=== PATIENT | male | born 1945 | race Caucasian/White ===

== ENCOUNTER 2019-02-25 13:49 | Outpatient (CLI) | payer MEDICARE ==
[2019-02-25 14:38] LABS: BASOPHILS % (AUTO) 0.2 %; EOSINOPHILS # (AUTO) 0.1 10^3/uL (0.0-0.7); EOSINOPHILS % (AUTO) 0.7 %; HGB - HEMOGLOBIN 13.6 g/dL (14.0-18.0); LYMPHOCYTES # (AUTO) 1.9 10^3/uL (1.5-3.5); LYMPHOCYTES % (AUTO) 10.7 %; MEAN CORPUSCULAR HEMOGLOBIN 30.4 pg (27.0-31.0); MEAN CORPUSCULAR HGB CONC 34.1 g/dL (32.0-36.0); MEAN PLATELET VOLUME 9.1 fL (7.4-11.4); MONOCYTES # (AUTO) 1.5 10^3/uL (0.0-1.0); MONOCYTES % (AUTO) 8.3 %; NEUTROPHILS # (AUTO) 14.4 10^3/uL (1.5-6.6); NEUTROPHILS % (AUTO) 80.1 %; PLT - PLATELET COUNT 219 10^3/uL (130-450); RED BLOOD COUNT 4.49 10^6/uL (4.70-6.10); RED CELL DISTRIBUTION WIDTH 13.5 % (12.0-15.0)
--- NOTE | 2019-02-25 15:15 | XRAY Report ---
Reason: PNEUMONIA, UNSPECIFIED ORGANISM Procedure Date: 02/25/2019 Accession Number: [id number] / [id number] Procedure: XR - Chest 2 View X-Ray CPT Code: 87476 FULL RESULT: EXAM: CHEST RADIOGRAPHY EXAM DATE: 02/25/2019 03:01 PM. CLINICAL HISTORY: PNEUMONIA, UNSPECIFIED ORGANISM. COMPARISON: None available. TECHNIQUE: 2 views. FINDINGS: Heart size is normal. Mild patchy opacities in the left lung base, likely the lingula. No pleural effusions or pneumothoraces visualized. IMPRESSION: Mild patchy opacities in the lingula, which may represent atelectasis or developing pneumonia. RADIA
== END 2019-02-25 13:50 | disposition home or self-care (01) ==
LOC: LAB 13:49
PROVIDERS: ATTEND Specialist
DX: J18.9 Pneumonia, unspecified organism (principal)
CPT/HCPCS: 71046; 85025

== ENCOUNTER 2019-03-20 12:12 | Outpatient (CLI) | payer MEDICARE ==
--- NOTE | 2019-03-20 22:04 | MRI Report ---
Reason: OTHER AMNESIA Procedure Date: 03/20/2019 Accession Number: [id number] / [id number] Procedure: MRI - Brain W/O CPT Code: FULL RESULT: EXAM: MRI BRAIN WITHOUT CONTRAST EXAM DATE: 03/20/2019 01:34 PM. CLINICAL HISTORY: 73-year-old male, amnesia COMPARISON: None. TECHNIQUE: Multiplanar, multisequence T1-weighted and fluid-sensitive MR sequences of the brain were performed. Sequences optimized for routine evaluation. Other: None. IV Contrast: None. FINDINGS: Brain Volume: Normal for age. Parenchyma/Dura: No mass, acute infarct or hemorrhage. Few scattered T2/FLAIR hyperintense periventricular and deep white matter lesions within cerebral hemispheres bilaterally. No parenchymal foci of susceptibility artifact. Ventricles/Cisterns: No hydrocephalus. No abnormal extra-axial fluid collection or hemorrhage. Orbits: Status post bilateral lens replacement surgery. Sella Turcica: The pituitary gland, cavernous sinuses, suprasellar cistern and optic chiasm are unremarkable. IAC: Symmetric and unremarkable. Vasculature: Normal signal flow void is seen in the major arterial structures at the skull base. Sinuses: No acute appearing sinus disease. Bones: No focal pathologic appearing marrow signal changes. Other: None. IMPRESSION: 1. No MRI evidence of acute intracranial abnormality. Specifically, no evidence of acute or subacute infarct, acute intracranial hemorrhage, mass, midline shift, or hydrocephalus. 2. Few scattered T2/FLAIR hyperintense periventricular and deep white matter lesions within cerebral hemispheres bilaterally. These lesions are nonspecific, and can be seen with the entire gamut of white matter conditions, including migraine headaches and as sequela of chronic microangiopathy. RADIA
== END 2019-03-20 12:13 | disposition home or self-care (01) ==
LOC: DI 12:12
PROVIDERS: ATTEND Family Medicine
DX: R41.3 Other amnesia (principal)
CPT/HCPCS: 70551

== ENCOUNTER 2020-09-22 09:37 | Outpatient (CLI) | payer MEDICARE | END 2020-09-22 09:38 | disposition critical access hospital (66) | LOC: EMS 09:37 | PROVIDERS: ATTEND Surgery | DX: K62.5 Hemorrhage of anus and rectum (principal); R42 Dizziness and giddiness | CPT/HCPCS: A0425; A0427 ==

== ENCOUNTER 2020-09-22 10:04 | Emergency (ER) | payer MEDICARE ==
[2020-09-22] MEDS ORDERED: SODIUM CHLORIDE 0.9% 1,000 ML IV STA (10:21)
--- NOTE | 2020-09-22 10:38 | ED Physician Documentation ---
History of Present Illness - Stated complaint Stated Complaint: GI BLEED - Chief complaint Chief Complaint: Abd Pain - History obtained from History obtained from: Patient - Additonal information Additional information: GI bleeding that started about 24 hours ago. He states that he had gone out for a walk when he suddenly felt as though he was going to have diarrhea. He states he came back home and when he use the toilet, he noticed that the bowl was full of blood. He states the blood was bright red, and that this happened several times throughout the day, as well as about 5 times last night. He states that each time, the bowl appeared to be full of blood, though the blood progressed from bright red to a very dark red. The patient states that he has not had any abdominal pain, nor has he had anal pain with defecating. He has not had any leakage of blood onto his underwear in between bowel movements. He is not bleeding from anywhere else. The patient does not take any anticoagulate chung therapy, even aspirin. He has a history of diverticulosis and diverticulitis previously, and this is the only other time he has had rectal bleeding. The patient states that his last colonoscopy was 3 years ago, and that he had some polyps removed and they noted the diverticuli but otherwise no findings. Patient states that he was otherwise feeling well until this morning, he walked back to the bedroom after using the bathroom and suddenly felt very lightheaded. Patient's states that she came in and found him to be diaphoretic and very pale and made him lay down. then called EMS. Patient states that he was able to walk out to the rig and felt "pretty good" at that point. Right now he is feeling fine. No other complaints at this time. Review of Systems Ten Systems: 10 systems reviewed and negative Constitutional: reports: Reviewed and negative Eyes: reports: Reviewed and negative Ears: reports: Reviewed and negative Nose: reports: Reviewed and negative Throat: reports: Reviewed and negative Cardiac: reports: Reviewed and negative Respiratory: reports: Reviewed and negative GI: reports: Diarrhea, Bloody / black stool. denies: Abdominal Pain, Nausea, Vomiting : reports: Reviewed and negative Skin: reports: Reviewed and negative Musculoskeletal: reports: Reviewed and negative Neurologic: reports: Reviewed and negative Psychiatric: reports: Reviewed and negative Endocrine: reports: Reviewed and negative Immunocompromised: reports: Reviewed and negative PD PAST MEDICAL HISTORY - Present Medications Home Medications: Ambulatory Orders Medication Instructions Recorded Confirmed No Known Home Medications 09/22/20 09/22/20 - Allergies Allergies/Adverse Reactions: Allergies Allergy/AdvReac Type Severity Reaction Status Date / Time No Known Drug Allergies Allergy Verified 09/22/20 10:23 PD ED PE NORMAL - Vitals Vital signs reviewed: Yes - General General: Alert and oriented X 3, No acute distress, Well developed/nourished (Patient is extremely well-appearing) - HEENT HEENT: Atraumatic, PERRL, EOMI, Moist mucous membranes - Neck Neck: Supple, no meningeal sign - Cardiac Cardiac: RRR, No murmur, Strong equal pulses - Respiratory Respiratory: No respiratory distress, Clear bilaterally - Abdomen Abdomen: Soft, Non tender, Non distended - Rectal Rectal: Other (Single, noninflamed, nonthrombosed hemorrhoid externally. No anal pain with digital rectal exam. No mass. Mild amount of grossly bloody, maroon-colored mucus in the rectal vault.) - Derm Derm: Normal color, Warm and dry, No rash - Extremities Extremities: No deformity, No edema, No calf tenderness / cord - Neuro Neuro: Alert and oriented X 3, clerk carrier 2-12 intact, Normal speech, Other (Otherwise grossly normal) - Psych Psych: Normal mood, Normal affect Results - Vitals Vitals: Vital Signs - 24 hr 09/22/20 09/22/20 09/22/20 10:17 13:01 13:47 Temperature 36.2 C L 36.7 C Heart Rate 68 73 72 Respiratory 18 16 18 Rate Blood Pressure 122/106 H 137/66 H 141/88 H O2 Saturation 100 95 98 Oxygen O2 Source Room air - Labs Labs: Laboratory Tests 09/22/20 09/22/20 09/22/20 10:40 10:40 10:40 WBC 13.1 H RBC 4.09 L Hgb 12.6 L Hct 38.0 L MCV 92.9 MCH 30.8 MCHC 33.2 RDW 13.5 Plt Count 225 MPV 10.8 Neut # (Auto) 10.1 H Lymph # (Auto) 1.9 Cata[place]oula # (Auto) 0.8 Eos # (Auto) 0.2 Baso # (Auto) 0.1 Absolute Nucleated RBC 0.00 Nucleated RBC % 0.0 PT 12.6 INR 1.1 Sodium Potassium Chloride Carbon Dioxide Anion Gap BUN Creatinine Estimated GFR (MDRD) Glucose Calcium Total Bilirubin AST ALT Alkaline Phosphatase Total Protein Albumin Globulin Albumin/Globulin Ratio Lipase Blood Type A POSITIVE Antibody Screen NEGATIVE 09/22/20 10:40 WBC RBC Hgb Hct MCV MCH MCHC RDW Plt Count MPV Neut # (Auto) Lymph # (Auto) [place]ata[place]oula # (Auto) Eos # (Auto) Baso # (Auto) Absolute Nucleated RBC Nucleated RBC % PT INR Sodium 138 Potassium 3.9 Chloride 106 Carbon Dioxide 23 Anion Gap 9.0 BUN 21 H Creatinine 1.0 Estimated GFR (MDRD) 72 L Glucose 168 H Calcium 8.8 Total Bilirubin 1.0 AST 22 ALT 27 Alkaline Phosphatase 54 Total Protein 6.5 L Albumin 3.9 Globulin 2.6 Albumin/Globulin Ratio 1.5 Lipase 22 Blood Type Antibody Screen - Rads (name of study) Ct abd/pelvis Radiology: Final report received, EMP read indepedently, See rad report (Multiple diverticuli) PD MEDICAL DECISION MAKING - ED course Complexity details: reviewed results, re-evaluated patient, considered differential, d/w patient ED course: The patient was worked up with labs and given IV fluids. Pt's hemoglobin was 12, and he was without sx for the rest of his stay in the ED. He was able to ambulate to the bathroom without difficulty or dizziness/lightheadedness, and had minimal blood with his stool. He was hemodynamically stable the entire time. CT scan showed numerous diverticuli without inflammation. I d/w pt that he is stable enough to go home at this point, but we could make a case for admission for obs and serial H/H. If the pt goes home, however, he must come immediately back, should he have any further episodes of more significant bleeding like he had before. After discussing the options with his , pt decided he would like to go home. We have discussed the usual indications for return, as well as the need for follow-up. Departure - Departure Disposition: 01 Home, Self Care Clinical Impression: Lower gastrointestinal bleeding Anemia Qualifiers: Anemia type: unspecified type Qualified Code(s): D64.9 - Anemia, unspecified Condition: Stable Instructions: ED Hematochezia Stable Comments: Your labs show a very mildly. Your CT scan shows quite a few diverticuli, but no evidence of inflammation. It may be your hemorrhoid that is bleeding, or may be from the diverticuli. Both are known to be prone to bleeding, but with both, the bleeding is usually temporary and resolves on its own. There is no medicine to stop the bleeding of either one, and generally, a colonoscopy is needed for further evaluation, should bleeding continue. Your vital signs have been stable here and you have been able to walk around without getting dizzy, and both of these are good signs. However, if your bleeding should start up again at the level that it was, especially if you feel persistently lightheaded, you should r eturn to the emergency department immediately. Discharge Date/Time: 09/22/20 13:54
[2020-09-22 10:47] LABS: BASOPHILS # (AUTO) 0.1 10^3/uL (0.0-0.1); BASOPHILS % (AUTO) 0.5 %; EOSINOPHILS # (AUTO) 0.2 10^3/uL (0.0-0.7); EOSINOPHILS % (AUTO) 1.5 %; HGB - HEMOGLOBIN 12.6 g/dL (14.0-18.0); LYMPHOCYTES # (AUTO) 1.9 10^3/uL (1.5-3.5); LYMPHOCYTES % (AUTO) 14.7 %; MEAN CORPUSCULAR HEMOGLOBIN 30.8 pg (27.0-31.0); MEAN CORPUSCULAR HGB CONC 33.2 g/dL (32.0-36.0); MEAN CORPUSCULAR VOLUME 92.9 fL (80.0-94.0); MEAN PLATELET VOLUME 10.8 fL (7.4-11.4); MONOCYTES # (AUTO) 0.8 10^3/uL (0.0-1.0); MONOCYTES % (AUTO) 5.7 %; NEUTROPHILS # (AUTO) 10.1 10^3/uL (1.5-6.6); NEUTROPHILS % (AUTO) 76.6 %; PLT - PLATELET COUNT 225 10^3/uL (130-450); RED BLOOD COUNT 4.09 10^6/uL (4.70-6.10); RED CELL DISTRIBUTION WIDTH 13.5 % (12.0-15.0); WHITE BLOOD COUNT 13.1 x10^3/uL (4.8-10.8)
[2020-09-22 10:54] LABS: INR 1.1 (0.8-1.2); PT - PROTHROMBIN TIME 12.6 secs (9.9-12.6)
[2020-09-22 11:02] LABS: ALBUMIN 3.9 g/dL (3.2-5.5); ALBUMIN/GLOBULIN RATIO 1.5 (1.0-2.2); CALCIUM 8.8 mg/dL (8.5-10.3); TOTAL PROTEIN 6.5 g/dL (6.7-8.2)
[2020-09-22] MEDS ORDERED: IOVERSOL 320 100 ML VIAL IVP ONE ×2 (12:34→13:16)
--- NOTE | 2020-09-22 13:04 | CT Report ---
PROCEDURE: Abdomen/Pelvis W INDICATIONS: abd pain, GI bleed CONTRAST: IV CONTRAST: Optiray 320 ml: 100 PO CONTRAST: *NO PO CONTRAST TECHNIQUE: After the administration of intravenous contrast, 5 mm thick sections acquired from the diaphragms to the symphysis. 5 mm thick coronal and sagittal reformats were acquired. For radiation dose reducti on, the following was used: automated exposure control, adjustment of mA and/or kV according to leydi ent size. COMPARISON: None. FINDINGS: Image quality: Excellent. ABDOMEN: Lung bases: Probable scar and small bleb is noted at the left lung base. Solid organs: Liver and spleen are normal in size and enhancement. Gallbladder is unremarkable Chetan iary system is non dilated. Pancreas enhances normally. No adrenal nodules. Kidneys demonstrate no rmal size and enhancement, without hydronephrosis. Peritoneum and bowel: Bowel loops demonstrate normal wall thickness and caliber. There are extensiv e sigmoid colon diverticular outpouchings. No mucosal thickening or pericolonic fat stranding to sugg est acute diverticulitis. The appendix is thin-walled and gas-filled. No free fluid or air. Nodes and vessels: No retroperitoneal or mesenteric adenopathy by size criteria. Aorta and inferior vena cava are normal in size. There is a 3.4 cm diameter right common iliac artery aneurysm. There is ectasia of the right internal iliac artery. Miscellaneous: No ventral hernias. PELVIS: Genitourinary: Bladder wall thickness is normal. Miscellaneous: No inguinal adenopathy. There is a small fat-containing left inguinal hernia. Bones: No suspicious bony lesions. No vertebral body compression fractures. IMPRESSION: 1. No acute intra-abdominal findings. 2. Extensive sigmoid colon diverticulosis. This may be the etiology of the patient's GI bleed. Direct visualization recommended to further characterize findings if clinically indicated. 3. Normal appendix. 4. 3.4 cm right common iliac artery aneurysm. If prior studies can be obtained, this would be helpful to evaluate for interval growth over time. Vascular surgery or interventional radiology consultation recommended. Reviewed by: Anisha Wright MD on 09/22/2020 1:02 PM PDT Approved by: Anisha Wright MD on 09/22/2020 1:02 PM PDT Station ID: [id number]
[2020-09-22 13:48] VITALS: BP 141/88
== END 2020-09-22 13:54 | disposition home or self-care (01) ==
LOC: EDUNIT# → ED 10:04
DX: K92.2 Gastrointestinal hemorrhage, unspecified (principal); D64.9 Anemia, unspecified; K64.9 Unspecified hemorrhoids; K57.30 Diverticulosis of large intestine without perforation or abscess without bleeding
CPT/HCPCS: 36415; 74177; 80053; 83690; 85025; 85610; 86850; 86900; 86901; 96360; 96361; 99284; Q9967

== ENCOUNTER 2022-05-15 08:27 | Outpatient (CLI) | payer MEDICARE ==
[2022-05-15 14:50] LABS: BASOPHILS # (AUTO) 0.1 10^3/uL (0.0-0.1); BASOPHILS % (AUTO) 0.7 %; EOSINOPHILS # (AUTO) 0.3 10^3/uL (0.0-0.7); EOSINOPHILS % (AUTO) 3.3 %; HCT - HEMATOCRIT 47.6 % (42.0-52.0); HGB - HEMOGLOBIN 15.1 g/dL (14.0-18.0); LYMPHOCYTES # (AUTO) 2.3 10^3/uL (1.5-3.5); LYMPHOCYTES % (AUTO) 27.9 %; MEAN CORPUSCULAR HEMOGLOBIN 30.2 pg (27.0-31.0); MEAN CORPUSCULAR HGB CONC 31.7 g/dL (32.0-36.0); MEAN CORPUSCULAR VOLUME 95.2 fL (80.0-94.0); MEAN PLATELET VOLUME 11.1 fL (7.4-11.4); MONOCYTES # (AUTO) 0.6 10^3/uL (0.0-1.0); MONOCYTES % (AUTO) 7.5 %; NEUTROPHILS # (AUTO) 4.9 10^3/uL (1.5-6.6); NEUTROPHILS % (AUTO) 60.1 %; PLT - PLATELET COUNT 242 10^3/uL (130-450); RED CELL DISTRIBUTION WIDTH 13.9 % (12.0-15.0); WHITE BLOOD COUNT 8.2 x10^3/uL (4.8-10.8)
[2022-05-15 16:25] LABS: ALBUMIN 4.1 g/dL (3.2-5.5); ALBUMIN/GLOBULIN RATIO 1.3 (1.0-2.2); BILIRUBIN,TOTAL 0.6 mg/dL (0.2-1.0); CALCIUM 9.4 mg/dL (8.5-10.3); CREATININE 1.1 mg/dL (0.6-1.2); POTASSIUM 4.7 mmol/L (3.5-5.0); TOTAL PROTEIN 7.3 g/dL (6.7-8.2)
== END 2022-05-15 08:28 | disposition home or self-care (01) ==
LOC: LAB.S 08:27
PROVIDERS: ATTEND Nurse Practitioner Family
DX: G62.9 Polyneuropathy, unspecified (principal); D64.9 Anemia, unspecified
CPT/HCPCS: 36415; 80053; 82607; 82746; 85025

== ENCOUNTER 2022-05-28 07:40 | Outpatient (CLI) | payer MEDICARE ==
[2022-05-28 20:26] LABS: ESTIMATED AVERAGE GLUCOSE 137 mg/dL (70-100); HEMOGLOBIN A1c% 6.4 % (4.27-6.07)
== END 2022-05-28 07:41 | disposition home or self-care (01) ==
LOC: LAB.S 07:40
PROVIDERS: ATTEND Nurse Practitioner Family
DX: R73.01 Impaired fasting glucose (principal)
CPT/HCPCS: 36415; 83036

== ENCOUNTER 2024-02-16 16:22 | Outpatient (CLI) | payer MEDICARE ==
--- NOTE | 2024-02-16 16:55 | XRAY Report ---
PROCEDURE: Shoulder 2+V BL INDICATIONS: PAIN OF LEFT SHOULDER JOINT TECHNIQUE: 3 views of the shoulder were acquired. COMPARISON: Radiograph 02/25/2019. FINDINGS: Bones: No fractures or dislocations. No suspicious bony lesions. Visualized ribs appear intact. Acromioclavicular joint space narrowing with osteophytosis. Soft tissues: No suspicious soft tissue calcifications. The visualized lungs are within normal limi ts. IMPRESSION: No acute bony abnormality. Moderate acromioclavicular osteoarthritis. Reviewed by: Theron Denny MD on 02/16/2024 4:54 PM PDT Approved by: Theron Denny MD on 02/16/2024 4:54 PM PDT Station ID: [id number]
== END 2024-02-16 16:23 | disposition home or self-care (01) ==
LOC: DI.S 16:22
PROVIDERS: ATTEND Registered Nurse
DX: M19.012 Primary osteoarthritis, left shoulder (principal); M19.011 Primary osteoarthritis, right shoulder